=== PATIENT | male | born 1955 | race Caucasian/White ===

== ENCOUNTER 2020-12-15 10:13 | Day surgery (SDC) | payer MEDICARE ==
[~2020-12-15] VITALS: Ht 175.3 cm; Wt 81.8 kg
[2020-12-15 10:35] VITALS: BP 121/71
[2020-12-15] MEDS ORDERED: fentaNYL/PF 50MCG/1 ML 2ML syringe ONE (10:48)
[2020-12-15] MEDS ORDERED: LIDOcaine Viscous 15ml cup ONE (10:48)
[2020-12-15] MEDS ORDERED: MIDAZolam 1 MG/ML 5ML VIAL ONE (10:48)
[2020-12-15] MEDS ORDERED: LISI20TA28 PO (11:19)
[2020-12-15] MEDS ORDERED: ASPI-611 PO (11:20)
[2020-12-15] MEDS ORDERED: MULT-1085 PO (11:20)
[2020-12-15] MEDS ORDERED: OMEG-79 PO (11:21)
[2020-12-15 11:39] VITALS: BP 107/64
[2020-12-15 11:49] VITALS: BP 114/73
[2020-12-15 11:59] VITALS: BP 97/59
[2020-12-15 12:09] VITALS: BP 101/55
== END 2020-12-15 12:15 | disposition home or self-care (01) ==
LOC: GI LAB 10:13
PROVIDERS: ATTEND Specialist
DX: R63.0 Anorexia (principal); R63.4 Abnormal weight loss; R11.0 Nausea; R19.09 Other intra-abdominal and pelvic swelling, mass and lump; K22.2 Esophageal obstruction; K44.9 Diaphragmatic hernia without obstruction or gangrene; K29.60 Other gastritis without bleeding; K25.9 Gastric ulcer, unspecified as acute or chronic, without hemorrhage or perforation; K31.89 Other diseases of stomach and duodenum; Z79.82 Long term (current) use of aspirin; Z79.899 Other long term (current) drug therapy
CPT/HCPCS: 43239; G0500; J2250; J3010; J7040; 99152; A4620

== ENCOUNTER 2020-12-17 07:47 | Day surgery (SDC) | payer MEDICARE ==
[~2020-12-17] VITALS: Ht 175.3 cm; Wt 81.8 kg
[~2020-12-17 07:47] MED LIST: ASPI-611 PO; LISI20TA28 PO; MULT-1085 PO; OMEG-79 PO
[2020-12-17] MEDS ORDERED: MIDAZolam 1 MG/ML 5ML VIAL ONE (07:57)
[2020-12-17] MEDS ORDERED: fentaNYL/PF 50MCG/1 ML 2ML syringe ONE (07:57)
[2020-12-17 08:04] VITALS: BP 135/75
[2020-12-17 09:45] VITALS: BP 124/64
[2020-12-17 09:55] VITALS: BP 112/69
[2020-12-17 10:05] VITALS: BP 118/65
[2020-12-17 10:15] VITALS: BP 111/70
== END 2020-12-17 10:23 | disposition home or self-care (01) ==
LOC: GI LAB 07:47
PROVIDERS: ATTEND Specialist
DX: R10.9 Unspecified abdominal pain (principal); R63.4 Abnormal weight loss; R19.03 Right lower quadrant abdominal swelling, mass and lump; C18.2 Malignant neoplasm of ascending colon; K63.89 Other specified diseases of intestine; K56.699 Other intestinal obstruction unspecified as to partial versus complete obstruction; K64.8 Other hemorrhoids; D64.9 Anemia, unspecified; I10 Essential (primary) hypertension; Z79.82 Long term (current) use of aspirin; Z79.899 Other long term (current) drug therapy
CPT/HCPCS: 45380; 45381; 99153; G0500; J2250; J3010; J7040; 99152; A4620

== ENCOUNTER 2021-02-01 07:04 | Day surgery (SDC) | payer MEDICARE ==
[~2021-02-01] VITALS: Ht 175.3 cm; Wt 90.1 kg
[2021-02-01 07:45] VITALS: BP 96/66
[2021-02-01] MEDS ORDERED: normal saline 1000ml 1,000 ML IV PRN (07:45)
[2021-02-01] MEDS ORDERED: METO-395 PO (07:58)
[2021-02-01] MEDS ORDERED: HYDR-3972 PO (07:58)
[2021-02-01 08:37] LABS: BASOPHILS % (AUTO) 0.1 % (0-1); EOSINOPHILS % (AUTO) 0.2 % (0-6); HEMATOCRIT 24.1 % (42.0-52.0); HEMOGLOBIN 7.4 g/dl (14.0-17.9); LYMPHOCYTES # (AUTO) 0.3 X10'3 (1.1-4.8); LYMPHOCYTES % (AUTO) 1.2 % (21-51); MEAN CORPUSCULAR HEMOGLOBIN 21.1 PG (27.0-31.0); MEAN CORPUSCULAR HGB CONC 30.9 g/dL (33.0-36.5); MEAN CORPUSCULAR VOLUME 68.5 FL (78-98); MEAN PLATELET VOLUME 6.3 FL (7.4-10.4); MONOCYTES # (AUTO) 1.8 X10'3 (0-0.9); MONOCYTES % (AUTO) 6.7 % (2-12); NEUTROPHILS # (AUTO) 25.3 X10'3 (1.8-7.7); NEUTROPHILS % (AUTO) 91.8 % (42-75); PLATELET COUNT 408 X10'3 (140-440); RED BLOOD COUNT 3.51 X10'6 (4.70-6.10); RED CELL DISTRIBUTION WIDTH 22.2 % (11.5-14.5)
[2021-02-01 08:41] LABS: WHITE BLOOD COUNT 27.6 X10'3 (4.5-11.0)
[2021-02-01 09:10] LABS: ALBUMIN 1.4 G/DL (3.4-5.0); ANION GAP 7 (8-16); BLOOD UREA NITROGEN 17 MG/DL (7-18); BUN/CREATININE RATIO 19.8 (5.4-32.0); CALCIUM 8.4 MG/DL (8.5-10.1); CHLORIDE 97 MMOL/L (99-107); CREATININE 0.86 MG/DL (0.60-1.10); GLUCOSE 100 MG/DL (70-104); POTASSIUM 4.3 MMOL/L (3.5-5.1); SODIUM 130 MMOL/L (135-145); TOTAL CARBON DIOXIDE 26.2 MMOL/L (24-32); eGFR 89 ML/MIN
[2021-02-01 09:13] LABS: TOTAL CELLS COUNTED 100
[2021-02-01 09:14] LABS: ANISOCYTOSIS 3+; HYPOCHROMASIA 1+; MICROCYTOSIS 2+; PLATELET ESTIMATE NORMAL
[2021-02-01 09:15] LABS: ELLIPTOCYTES 1+; POLYCHROMASIA 1+; SCHISTOCYTES FEW; TEAR DROP CELLS 2+
--- NOTE | 2021-02-01 10:55 | NUR ---
VSS, pt is in stable condition, all pt belongings transferred with pt, transferred pt to ER bed 6, bedside report to TOPHER Montez.
[2021-02-01] MEDS ORDERED: LISI-644 PO (13:36)
[2021-02-01] MEDS ORDERED: PANT20TA18 PO (13:37)
== END 2021-02-01 10:40 | disposition short-term general hospital (02) ==
LOC: SSTAY O 07:04
PROVIDERS: ATTEND Radiology Vascular & Interventional Radiology
DX: N28.89 Other specified disorders of kidney and ureter (principal); Z53.8 Procedure and treatment not carried out for other reasons; C18.2 Malignant neoplasm of ascending colon; Z79.899 Other long term (current) drug therapy; Z20.822 Contact with and (suspected) exposure to COVID-19
CPT/HCPCS: 36415; 80048; 85025; 85610; U0003; 85007

== ENCOUNTER 2021-02-01 11:01 | Emergency (ER) | payer MEDICARE ==
[~2021-02-01] VITALS: Ht 175.3 cm; Wt 88.0 kg
[~2021-02-01 11:01] MED LIST changes: +HYDR-3972 PO; +METO-395 PO
[2021-02-01] MEDS ORDERED: normal saline 1000ML IV soln IV ONE (11:10)
[2021-02-01] MEDS ORDERED: piperacillin/tazo 3.375gm/50ml 50 ML IV ONE (11:10)
--- NOTE | 2021-02-01 11:16 | NUR ---
pt came from Short Stay was there for biopsy of renal mass and to place port, unable to complete due to WBC 27.6 per short stay nurse. Also has recent dx of colon cancer
[2021-02-01 11:54] LABS: BASOPHILS % (AUTO) 0.1 % (0-1); EOSINOPHILS % (AUTO) 0 % (0-6); HEMOGLOBIN 7.8 g/dl (14.0-17.9); LYMPHOCYTES # (AUTO) 0.4 X10'3 (1.1-4.8); LYMPHOCYTES % (AUTO) 1.5 % (21-51); MEAN CORPUSCULAR HEMOGLOBIN 20.5 PG (27.0-31.0); MEAN CORPUSCULAR VOLUME 68.3 FL (78-98); MEAN PLATELET VOLUME 6.5 FL (7.4-10.4); MONOCYTES # (AUTO) 1.6 X10'3 (0-0.9); MONOCYTES % (AUTO) 5.5 % (2-12); NEUTROPHILS # (AUTO) 27.3 X10'3 (1.8-7.7); NEUTROPHILS % (AUTO) 92.9 % (42-75); PLATELET COUNT 434 X10'3 (140-440); RED CELL DISTRIBUTION WIDTH 22.5 % (11.5-14.5)
[2021-02-01 12:07] LABS: ALANINE AMINOTRANSFERASE 18 U/L (12-78); ALBUMIN 1.3 G/DL (3.4-5.0); ALBUMIN/GLOBULIN RATIO 0.3 (1.1-1.5); ALKALINE PHOSPHATASE 274 IU/L (46-116); ANION GAP 7 (8-16); ASPARTATE AMINO TRANSFERASE 31 U/L (10-37); BILIRUBIN,TOTAL 0.4 MG/DL (0.1-1.0); BLOOD UREA NITROGEN 16 MG/DL (7-18); BUN/CREATININE RATIO 18.4 (5.4-32.0); CALCIUM 8.5 MG/DL (8.5-10.1); CHLORIDE 98 MMOL/L (99-107); CREATININE 0.87 MG/DL (0.60-1.10); GLUCOSE 97 MG/DL (70-104); POTASSIUM 4.7 MMOL/L (3.5-5.1); SODIUM 132 MMOL/L (135-145); TOTAL CARBON DIOXIDE 27.2 MMOL/L (24-32); TOTAL PROTEIN 5.3 G/DL (6.4-8.2); eGFR 88 ML/MIN
--- NOTE | 2021-02-01 12:08 | NUR ---
pt is resting quietly on gurney, receiving 1st liter NS
[2021-02-01 12:09] LABS: WHITE BLOOD COUNT 29.4 X10'3 (4.5-11.0)
[2021-02-01] MEDS ORDERED: iohexol 300mg/ml 100ml inj. ONE (12:26)
[2021-02-01] MEDS ORDERED: furosemide 10 MG/1 ML 10ml inj IV ONE (13:30)
[2021-02-01] MEDS ORDERED: LISI-644 PO (13:36)
[2021-02-01] MEDS ORDERED: PANT20TA18 PO (13:37)
--- NOTE | 2021-02-01 14:09 | NUR ---
2nd liter NS infusing w/o
--- NOTE | 2021-02-01 14:41 | NUR ---
pt up to bedside commode to have bowel movement, family at bedside
--- NOTE | 2021-02-01 15:15 | NUR ---
plan to transfer pt to facility with higher level of care
[2021-02-01 15:39] VITALS: BP 110/75
--- NOTE | 2021-02-01 15:39 | NUR ---
pt is resting quietly on gurney,
--- NOTE | 2021-02-01 17:20 | NUR ---
report to Maisha OBANDO with [facility], and report to Dilma OBANDO at [facility]
== END 2021-02-01 17:22 | disposition short-term general hospital (02) ==
LOC: ER 11:02
DX: A41.9 Sepsis, unspecified organism (principal); C18.9 Malignant neoplasm of colon, unspecified; I50.9 Heart failure, unspecified; N50.89 Other specified disorders of the male genital organs; Z79.82 Long term (current) use of aspirin; Z79.899 Other long term (current) drug therapy
CPT/HCPCS: 36415; 71045; 74177; 80053; 83605; 83880; 84145; 85025; 85610; 86885; 86900; 86901; 87040; 93005; 96365; 96366; 96375; 99291; 99292; J1940; J2543; J7030; Q9967